=== PATIENT | female | born 1975 | race Caucasian/White ===

== ENCOUNTER → 2016-10-24 | Outpatient (CLI) | payer OTHER ==
[~2016-10-24] MED LIST: CRESTOR5 MG PO; CYMBALTA30 MG PO; Calan SR,Covera HS,I PO; Colace PO; Cymbalta PO; D VI PO; Dilaudid PO; ENDOCET 5-3251 EACH PO; FOLVITE1 M1 PO; Feosol PO; Glucophage PO; HUMULIN 70100 UNIT/1 SC; Motrin PO; NATALCARE RX1 TABLE1 PO; NOVOLOG100 UNIT/3 SC; Percocet 10/325,Endo PO; Singulair PO; TOPAMAX100 MG PO; Theragran PO; Topamax PO; Tylenol Extra Streng PO
== END | disposition home or self-care (01) ==
LOC: NUC 10-23 07:00
DX: R10.11 Right upper quadrant pain (principal)
CPT/HCPCS: 78227; A9537; J2805

== ENCOUNTER → 2016-12-05 | Outpatient (CLI) | payer OTHER | END | disposition home or self-care (01) | LOC: NUC 07:24 | DX: R94.8 Abnormal results of function studies of other organs and systems (principal); T18.2XXA Foreign body in stomach, initial encounter | CPT/HCPCS: 78264; A9541 ==